=== PATIENT | female | born 1940 | race Asian ===

== ENCOUNTER 2016-12-11 06:49 | Outpatient (CLI) | payer OTHER ==
[2016-12-11 08:54] LABS: ANION GAP 9.9 (8-16); CARBON DIOXIDE 33.1 mmol/L (21-32); CHLORIDE 104 mmol/L (98-107); GLUCOSE 103 mg/dL (74-106); SODIUM SERUM 142 mmol/L (136-145)
[2016-12-11 08:55] LABS: CALCIUM 8.8 mg/dL (8.5-10.1); CREATININE 0.8 mg/dL (0.6-1.3); UREA NITROGEN, BLOOD 14 mg/dL (7-18)
[2016-12-11 08:57] LABS: CHOL/HDL RATIO 3.2 (1-4.5); CHOLESTEROL 317 mg/dL (<200); HDL CHOLESTEROL 99 mg/dL (40-60); LDL (CALC) 205 mg/dL (60-100); TRIGLYCERIDES 69 mg/dL (30-150)
[2016-12-11 09:09] LABS: ALANINE AMINOTRANSFERASE 18 U/L (12-78); ALBUMIN 3.8 g/dL (3.4-5.0); ALKALINE PHOSPHATASE 67 U/L (46-116); ASPARTATE AMINOTRANSFERASE 30 U/L (15-37); THYROID STIMULATING HORMONE 4.49 uIU/mL (0.34-3.76); TOTAL BILIRUBIN 0.7 mg/dL (0.0-1.0); TOTAL PROTEIN, SERUM 7.7 g/dL (6.4-8.2)
[2016-12-12 15:29] LABS: VITAMIN D, 25-HYDROXY 30.8 ng/mL (30.0-100.0)
== END 2016-12-11 19:51 | disposition home or self-care (01) ==
LOC: MLB 06:49
PROVIDERS: ATTEND Internal Medicine Geriatric Medicine
DX: E78.5 Hyperlipidemia, unspecified (principal); E07.9 Disorder of thyroid, unspecified; E55.9 Vitamin D deficiency, unspecified
CPT/HCPCS: 36415; 80053; 82306; 83036; 84443

== ENCOUNTER 2017-04-10 06:48 | Outpatient (CLI) | payer OTHER ==
[2017-04-10 08:14] LABS: ALANINE AMINOTRANSFERASE 13 U/L (14-59); ALBUMIN 3.7 g/dL (3.4-5.0); ALKALINE PHOSPHATASE 66 U/L (46-116); ANION GAP 9.8 (8-16); ASPARTATE AMINOTRANSFERASE 24 U/L (15-37); CALCIUM 8.8 mg/dL (8.5-10.1); CARBON DIOXIDE 29.5 mmol/L (21-32); CHLORIDE 106 mmol/L (98-107); CHOL/HDL RATIO 2.3 (1-4.5); CHOLESTEROL 220 mg/dL (<200); CREATININE 0.8 mg/dL (0.6-1.3); GLUCOSE 100 mg/dL (74-106); HDL CHOLESTEROL 95 mg/dL (40-60); LDL (CALC) 114 mg/dL (60-100); POTASSIUM 4.3 mmol/L (3.5-5.1); SODIUM SERUM 141 mmol/L (136-145); THYROID STIMULATING HORMONE 2.43 uIU/mL (0.34-3.74); TOTAL BILIRUBIN 0.6 mg/dL (0.0-1.0); TOTAL PROTEIN, SERUM 7.5 g/dL (6.4-8.2); TRIGLYCERIDES 59 mg/dL (30-150); UREA NITROGEN, BLOOD 16 mg/dL (7-18)
== END 2017-04-10 20:22 | disposition home or self-care (01) ==
LOC: MLB 06:48
PROVIDERS: ATTEND Internal Medicine Geriatric Medicine
DX: I11.9 Hypertensive heart disease without heart failure (principal); E78.5 Hyperlipidemia, unspecified
CPT/HCPCS: 36415; 80053; 84443